=== PATIENT | female | born 1970 | race American Indian/Alaskan Native ===

== ENCOUNTER 2016-11-10 14:19 | Emergency (ER) | payer OTHER ==
--- NOTE | 2016-11-10 16:34 | Cat Scan Report ---
Cranial CT without contrast. History: Neurological deficits less than 6 hours upon awakening. Findings: There is no evidence of acute infarct or hemorrhage. The ventricles are normal in size and contour. The posterior fossa is normal. There are no masses or extra-axial collections. The mcbride-white matter junction appears normal. The calvarium is intact. There is evidence of mild chronic right maxillary sinusitis. Impression: No acute findings.
[2016-11-10 16:37] LABS: Basophils % (Auto) 0.4 % (0.0-1.8); Eosinophils % (Auto) 0.8 % (0.0-4.3); Hematocrit 34.5 % (30.3-42.9); Hemoglobin 11.1 gm/dl (10.1-14.3); Mean Corpuscular HGB Conc 32 % (30-34); Mean Corpuscular Hemoglobin 32 pg (28-32); Mean Corpuscular Volume 98 fl (79-97); Platelet Count 215 K/mm3 (140-440); Red Blood Count 3.51 M/mm3 (3.65-5.03); White Blood Count 7.9 K/mm3 (4.5-11.0)
[2016-11-10 16:39] LABS: Red Cell Distribution Width 22.1 % (13.2-15.2)
[2016-11-10 16:50] LABS: INR 1.08 (0.87-1.13)
[2016-11-10 16:51] LABS: Partial Thromboplastin Time 30.9 Sec. (24.2-36.6)
[2016-11-10 16:54] LABS: Anion Gap 19 mmol/L; BUN/Creatinine Ratio 8.33; Blood Urea Nitrogen 5 mg/dL (7-17); Calcium 8.8 mg/dL (8.4-10.2); Carbon Dioxide 23 mmol/L (22-30); Chloride 99.8 mmol/L (98-107); Glucose 92 mg/dL (65-100); Potassium 3.9 mmol/L (3.6-5.0); Sodium 138 mmol/L (137-145)
[2016-11-10 22:28] VITALS: BP 148/81
--- NOTE | 2016-11-10 22:31 | Emergency Department Report ---
HPI - General Chief Complaint: High BP Time Seen by Provider: 11/10/16 22:13 - HPI HPI: This is a 46-year-old female presents to the emergency department home with complaint of elevated and uncontrolled blood pressure. She says that she is starting a new job and was told that she needed to get her blood pressure under control or at least checked out before she could start working. She does complain of some intermittent headaches but currently does not have one. She denies any chest pain, shortness of breath, vision change, nausea, vomiting. She says that she does have a history of hypertension but has never been on medication. She does not have a primary care doctor but recently got some insurance and has not picked one out yet. The last time she had a primary care physician was about 5 years ago. She denies any tobacco abuse, excessive caffeine use but does admit to a poor diet sometimes. No recent travel or sick contacts at home. ED Past Medical Hx - Past Medical History Previous Medical History?: Yes Hx Hypertension: Yes (no meds) Additional medical history: thyroid goiter - Surgical History Past Surgical History?: Yes Additional Surgical History: tubaligation - Social History Smoking Status: Never Smoker Substance Use Type: Alcohol - Medications Home Medications: Home Medications Medication Instructions Recorded Confirmed Last Taken Type amLODIPine [Norvasc] 10 mg PO DAILY #20 tab 11/10/16 Unknown Rx ED Review of Systems ROS: Stated complaint: HTN Other details as noted in HPI Comment: All other systems reviewed and negative Constitutional: denies: chills, fever Eyes: denies: eye pain, eye discharge, vision change ENT: denies: ear pain, throat pain Respiratory: denies: cough, shortness of breath, wheezing Cardiovascular: denies: chest pain, palpitations Gastrointestinal: denies: abdominal pain, nausea, diarrhea Genitourinary: denies: urgency, dysuria, discharge Musculoskeletal: denies: back pain, joint swelling, arthralgia Skin: denies: rash, lesions Neurological: denies: headache, weakness, paresthesias Physical Exam - Physical Exam Vital Signs: Vital Signs 11/10/16 11/10/16 11/10/16 15:50 20:21 21:10 Temperature 98.4 F 98 F Pulse Rate 98 H 91 H 94 H Respiratory 18 16 14 Rate Blood Pressure 197/119 177/90 Blood Pressure 199/107 [Left] O2 Sat by Pulse 98 97 Oximetry 11/10/16 11/10/16 11/10/16 21:12 21:14 21:16 Temperature 98.3 F Pulse Rate 103 H 94 H 92 H Respiratory 19 16 16 Rate Blood Pressure 177/90 177/90 177/90 Blood Pressure [Left] O2 Sat by Pulse 98 100 99 Oximetry 11/10/16 11/10/16 11/10/16 21:18 21:20 21:22 Temperature Pulse Rate 88 83 94 H Respiratory 13 15 18 Rate Blood Pressure 177/90 177/90 177/90 Blood Pressure [Left] O2 Sat by Pulse 100 99 98 Oximetry 11/10/16 11/10/16 11/10/16 21:24 21:26 21:28 Temperature Pulse Rate 84 87 88 Respiratory 22 17 17 Rate Blood Pressure 177/90 177/90 177/90 Blood Pressure [Left] O2 Sat by Pulse 99 99 99 Oximetry 11/10/16 11/10/16 11/10/16 21:30 21:32 21:34 Temperature Pulse Rate 86 94 H 88 Respiratory 16 18 19 Rate Blood Pressure 153/79 153/79 153/79 Blood Pressure [Left] O2 Sat by Pulse 100 99 98 Oximetry 11/10/16 11/10/16 11/10/16 21:36 21:38 21:40 Temperature Pulse Rate 86 91 H 93 H Respiratory 18 17 19 Rate Blood Pressure 153/79 153/79 153/79 Blood Pressure [Left] O2 Sat by Pulse 98 99 99 Oximetry 11/10/16 11/10/16 11/10/16 21:42 21:44 21:46 Temperature Pulse Rate 88 89 90 Respiratory 21 20 16 Rate Blood Pressure 153/79 153/79 153/79 Blood Pressure [Left] O2 Sat by Pulse 98 99 99 Oximetry 11/10/16 11/10/16 11/10/16 21:48 21:50 21:52 Temperature Pulse Rate 98 H 100 H 99 H Respiratory 21 18 19 Rate Blood Pressure 153/79 153/79 153/79 Blood Pressure [Left] O2 Sat by Pulse 99 100 100 Oximetry 11/10/16 11/10/16 11/10/16 21:54 21:56 21:58 Temperature Pulse Rate 100 H 99 H 103 H Respiratory 18 15 10 L Rate Blood Pressure 153/79 153/79 153/79 Blood Pressure [Left] O2 Sat by Pulse 100 100 100 Oximetry 11/10/16 11/10/16 11/10/16 22:00 22:02 22:04 Temperature Pulse Rate 102 H 95 H 98 H Respiratory 13 18 20 Rate Blood Pressure 152/74 152/74 152/74 Blood Pressure [Left] O2 Sat by Pulse 100 100 100 Oximetry 11/10/16 11/10/16 11/10/16 22:06 22:08 22:10 Temperature Pulse Rate 106 H 103 H 106 H Respiratory 23 15 15 Rate Blood Pressure 152/74 152/74 152/74 Blood Pressure [Left] O2 Sat by Pulse 100 100 100 Oximetry 11/10/16 11/10/16 11/10/16 22:12 22:14 22:16 Temperature Pulse Rate 101 H 107 H 105 H Respiratory 17 17 19 Rate Blood Pressure 152/74 152/74 152/74 Blood Pressure [Left] O2 Sat by Pulse 99 100 99 Oximetry 11/10/16 11/10/16 11/10/16 22:18 22:20 22:22 Temperature Pulse Rate 103 H 105 H 102 H Respiratory 19 16 16 Rate Blood Pressure 152/74 152/74 152/74 Blood Pressure [Left] O2 Sat by Pulse 99 100 100 Oximetry 11/10/16 11/10/16 22:24 22:25 Temperature Pulse Rate 105 H 101 H Respiratory 14 16 Rate Blood Pressure 152/74 148/81 Blood Pressure [Left] O2 Sat by Pulse 100 100 Oximetry Physical Exam: GENERAL: The patient is well-developed well-nourished. HENT: Normocephalic. Atraumatic. Patient has moist mucous membranes. EYES: Extraocular motions are intact. Pupils equal reactive to light bilaterally. No nystagmus. NECK: Supple. Trachea is midline. CHEST/LUNGS: Clear to auscultation. There is no respiratory distress noted. HEART/CARDIOVASCULAR: Regular. There is no tachycardia. There is no gallop rub or murmur. ABDOMEN: Abdomen is soft, nontender. Patient has normal bowel sounds. There is no abdominal distention. Obese habitus. SKIN: Skin is warm and dry. NEURO: The patient is awake, alert, and oriented. The patient is cooperative. The patient has no focal neurologic deficits. The patient has normal speech. MUSCULOSKELETAL: There is no tenderness or deformity. There is no limitation range of motion. There is no evidence of acute injury. ED Course Vital Signs 11/10/16 11/10/16 11/10/16 15:50 20:21 21:10 Temperature 98.4 F 98 F Pulse Rate 98 H 91 H 94 H Respiratory 18 16 14 Rate Blood Pressure 197/119 177/90 Blood Pressure 199/107 [Left] O2 Sat by Pulse 98 97 Oximetry 11/10/16 11/10/16 11/10/16 21:12 21:14 21:16 Temperature 98.3 F Pulse Rate 103 H 94 H 92 H Respiratory 19 16 16 Rate Blood Pressure 177/90 177/90 177/90 Blood Pressure [Left] O2 Sat by Pulse 98 100 99 Oximetry 11/10/16 11/10/16 11/10/16 21:18 21:20 21:22 Temperature Pulse Rate 88 83 94 H Respiratory 13 15 18 Rate Blood Pressure 177/90 177/90 177/90 Blood Pressure [Left] O2 Sat by Pulse 100 99 98 Oximetry 11/10/16 11/10/16 11/10/16 21:24 21:26 21:28 Temperature Pulse Rate 84 87 88 Respiratory 22 17 17 Rate Blood Pressure 177/90 177/90 177/90 Blood Pressure [Left] O2 Sat by Pulse 99 99 99 Oximetry 11/10/16 11/10/16 11/10/16 21:30 21:32 21:34 Temperature Pulse Rate 86 94 H 88 Respiratory 16 18 19 Rate Blood Pressure 153/79 153/79 153/79 Blood Pressure [Left] O2 Sat by Pulse 100 99 98 Oximetry 11/10/16 11/10/16 11/10/16 21:36 21:38 21:40 Temperature Pulse Rate 86 91 H 93 H Respiratory 18 17 19 Rate Blood Pressure 153/79 153/79 153/79 Blood Pressure [Left] O2 Sat by Pulse 98 99 99 Oximetry 11/10/16 11/10/16 11/10/16 21:42 21:44 21:46 Temperature Pulse Rate 88 89 90 Respiratory 21 20 16 Rate Blood Pressure 153/79 153/79 153/79 Blood Pressure [Left] O2 Sat by Pulse 98 99 99 Oximetry 11/10/16 11/10/16 11/10/16 21:48 21:50 21:52 Temperature Pulse Rate 98 H 100 H 99 H Respiratory 21 18 19 Rate Blood Pressure 153/79 153/79 153/79 Blood Pressure [Left] O2 Sat by Pulse 99 100 100 Oximetry 11/10/16 11/10/16 11/10/16 21:54 21:56 21:58 Temperature Pulse Rate 100 H 99 H 103 H Respiratory 18 15 10 L Rate Blood Pressure 153/79 153/79 153/79 Blood Pressure [Left] O2 Sat by Pulse 100 100 100 Oximetry 11/10/16 11/10/16 11/10/16 22:00 22:02 22:04 Temperature Pulse Rate 102 H 95 H 98 H Respiratory 13 18 20 Rate Blood Pressure 152/74 152/74 152/74 Blood Pressure [Left] O2 Sat by Pulse 100 100 100 Oximetry 11/10/16 11/10/16 11/10/16 22:06 22:08 22:10 Temperature Pulse Rate 106 H 103 H 106 H Respiratory 23 15 15 Rate Blood Pressure 152/74 152/74 152/74 Blood Pressure [Left] O2 Sat by Pulse 100 100 100 Oximetry 11/10/16 11/10/16 11/10/16 22:12 22:14 22:16 Temperature Pulse Rate 101 H 107 H 105 H Respiratory 17 17 19 Rate Blood Pressure 152/74 152/74 152/74 Blood Pressure [Left] O2 Sat by Pulse 99 100 99 Oximetry 11/10/16 11/10/16 11/10/16 22:18 22:20 22:22 Temperature Pulse Rate 103 H 105 H 102 H Respiratory 19 16 16 Rate Blood Pressure 152/74 152/74 152/74 Blood Pressure [Left] O2 Sat by Pulse 99 100 100 Oximetry 11/10/16 11/10/16 22:24 22:25 Temperature Pulse Rate 105 H 101 H Respiratory 14 16 Rate Blood Pressure 152/74 148/81 Blood Pressure [Left] O2 Sat by Pulse 100 100 Oximetry ED Medical Decision Making - Lab Data Result diagrams: 11/10/16 16:19 11/10/16 16:19 - EKG Data -: EKG Interpreted by Me EKG shows normal: sinus rhythm, axis, intervals, QRS complexes, ST-T waves Rate: normal - EKG Data When compared to previous EKG there are: previous EKG unavailable Interpretation: normal EKG - Medical Decision Making 46-year-old female presents with complaint of elevated blood pressure and needing to get it under control for a new job. Labs are unremarkable. Her blood pressure came down to a more reasonable level without any medications. We discussed some dietary changes and/or lifestyle changes that she could try. She'll be started on a medium dose of amlodipine/Norvasc and given multiple referrals for primary care. We discussed keeping a blood pressure log. She will return to the ER with any worsening of her symptoms or any acute distress. Critical Care Time: No Critical care attestation.: If time is entered above; I have spent that time in minutes in the direct care of this critically ill patient, excluding procedure time. ED Disposition Clinical Impression: Hypertension Qualifiers: Hypertension type: essential hypertension Qualified Code(s): I10 - Essential ( primary) hypertension Disposition: DC- TO HOME OR SELFCARE Is pt being admited?: No Condition: Stable Instructions: Hypertension (ED) Additional Instructions: Please follow up with a primary care physician in the next few days if possible. Try to stay away from any foods that are high in salt or caffeinated products to help with her blood pressure. Keep a blood pressure log. I have started you on a blood pressure medication called Norvasc/amlodipine that is to be taken once per day, usually in the morning. Return to the emergency Department with any worsening of your symptoms or any acute distress. Prescriptions: amLODIPine [Norvasc] 10 mg PO DAILY #20 tab Referrals: PRIMARY CARE, [Primary Care Provider] - 3-5 Days TREY HUMPHREYS MD [Staff Physician] - 3-5 Days KELVIN SWEET MD [Staff Physician] - 3-5 Days CESAR LOCKWOOD MD [Staff Physician] - 3-5 Days Time of Disposition: 22:31
== END 2016-11-10 22:44 | disposition home or self-care (01) ==
LOC: ED 14:19
DX: I10 Essential (primary) hypertension (principal)
CPT/HCPCS: 36415; 70450; 80048; 82962; 84484; 85025; 85610; 85670; 85730; 93005; 93010